=== PATIENT | male | born 1975 | race Two or more races ===

== ENCOUNTER 2019-02-14 14:21 | Emergency (ER) | payer OTHER ==
[~2019-02-14] VITALS: Ht 182.9 cm; Wt 114.3 kg
[2019-02-14] MEDS ORDERED: KETO10TA2 PO (15:52)
== END 2019-02-14 17:16 | disposition home or self-care (01) ==
LOC: ER 14:21
DX: S62.397A Other fracture of fifth metacarpal bone, left hand, initial encounter for closed fracture (principal); M12.542 Traumatic arthropathy, left hand; W18.09XA Striking against other object with subsequent fall, initial encounter; Y93.89 Activity, other specified; Y92.018 Other place in single-family (private) house as the place of occurrence of the external cause; Y99.8 Other external cause status